=== PATIENT | female | born 1940 | race Caucasian/White ===

== ENCOUNTER 2018-10-11 10:14 | Outpatient (CLI) | payer OTHER | END 2018-10-11 17:00 | disposition home or self-care (01) | LOC: MAMO-SONO 10:14 | DX: Z12.31 Encounter for screening mammogram for malignant neoplasm of breast (principal); Z87.898 Personal history of other specified conditions ==

== ENCOUNTER 2021-09-08 12:59 | Outpatient (CLI) | payer OTHER | END 2021-09-08 13:01 | disposition home or self-care (01) | LOC: LAB 12:59 | PROVIDERS: ATTEND Radiology Diagnostic Radiology | DX: R31.29 Other microscopic hematuria (principal) ==

== ENCOUNTER 2021-09-13 08:03 | Outpatient (CLI) | payer OTHER | END 2021-09-13 08:20 | disposition home or self-care (01) | LOC: TOM 08:03 | PROVIDERS: ATTEND Urology | DX: K76.0 Fatty (change of) liver, not elsewhere classified (principal); Q61.01 Congenital single renal cyst; K57.90 Diverticulosis of intestine, part unspecified, without perforation or abscess without bleeding; R31.29 Other microscopic hematuria | CPT/HCPCS: 74178; Q9965 ==

== ENCOUNTER 2022-05-18 10:27 | Outpatient (CLI) | payer OTHER | END 2022-05-18 10:42 | disposition home or self-care (01) | LOC: MAMO-SONO 10:27 | PROVIDERS: ATTEND Obstetrics & Gynecology Obstetrics | DX: N64.4 Mastodynia (principal); N60.29 Fibroadenosis of unspecified breast ==

== ENCOUNTER 2022-06-16 10:51 | Outpatient (CLI) | payer OTHER | END 2022-06-16 11:07 | disposition home or self-care (01) | LOC: SONOGRAMA 10:51 | PROVIDERS: ATTEND Obstetrics & Gynecology Obstetrics | DX: N95.1 Menopausal and female climacteric states (principal) ==

== ENCOUNTER 2023-07-21 08:20 | Outpatient (CLI) | payer OTHER | END 2023-07-21 08:33 | disposition home or self-care (01) | LOC: SONOGRAMA 08:20 | PROVIDERS: ATTEND Internal Medicine Endocrinology, Diabetes & Metabolism | DX: K76.2 Central hemorrhagic necrosis of liver (principal); R73.03 Prediabetes; E78.2 Mixed hyperlipidemia; I11.9 Hypertensive heart disease without heart failure ==

== ENCOUNTER 2023-09-12 13:08 | Outpatient (CLI) | payer OTHER | END 2023-09-12 13:26 | disposition home or self-care (01) | LOC: MAMO-SONO 13:08 | DX: N60.29 Fibroadenosis of unspecified breast (principal); N64.4 Mastodynia; Z12.31 Encounter for screening mammogram for malignant neoplasm of breast ==

== ENCOUNTER 2024-10-08 10:16 | Outpatient (CLI) | payer OTHER | END 2024-10-08 10:24 | disposition home or self-care (01) | LOC: MAMO-SONO 10:16 | PROVIDERS: ATTEND Obstetrics & Gynecology Obstetrics | DX: N60.09 Solitary cyst of unspecified breast (principal); N64.4 Mastodynia; Z12.31 Encounter for screening mammogram for malignant neoplasm of breast ==

== ENCOUNTER 2025-09-30 07:11 | Outpatient (CLI) | payer OTHER | END 2025-09-30 07:13 | disposition home or self-care (01) | LOC: NUCLEAR 07:11 | PROVIDERS: ATTEND Internal Medicine | DX: I20.9 Angina pectoris, unspecified (principal) | CPT/HCPCS: 78452; 93017; A9500 ==

== ENCOUNTER 2025-11-13 12:31 | Outpatient (CLI) | payer OTHER | END 2025-11-13 12:33 | disposition home or self-care (01) | LOC: MAMO-SONO 12:31 | PROVIDERS: ATTEND Obstetrics & Gynecology Obstetrics | DX: N64.4 Mastodynia (principal); N60.29 Fibroadenosis of unspecified breast; Z12.31 Encounter for screening mammogram for malignant neoplasm of breast ==